=== PATIENT | female | born 1985 | race Caucasian/White ===

== ENCOUNTER 2020-02-26 19:53 | Emergency (ER) | payer OTHER ==
[2020-02-26] MEDS ORDERED: LIDOCAINE VISCOUS 2% 20 ML UDC ONE (22:41)
[2020-02-26] MEDS ORDERED: DICYCLOMINE HCL LIQUID 10 MG/5 ML UDC ONE (22:41)
[2020-02-26] MEDS ORDERED: ALUMINUM HYD/MAG/SIMETHICONE 30 ML UDC ONE (22:41)
[2020-02-26] MEDS ORDERED: FAMOTIDINE 20 MG TAB ONE (22:41)
[2020-02-27] MEDS ORDERED: ONDANSETRON 4 MG ODT ONE (00:44)
[2020-02-27] MEDS ORDERED: MORPHINE SULFATE 4 MG/ML SYR ONE (00:44)
[2020-02-27] MEDS ORDERED: ALBUTEROL SULFATE/IPRATROPIU 3 ML SOL IH ONE (02:26)
== END 2020-02-27 01:31 | disposition home or self-care (01) ==
LOC: MED 19:53
DX: K80.20 Calculus of gallbladder without cholecystitis without obstruction (principal)
CPT/HCPCS: 76705; 99284; J2270; Q0092; Q0162